=== PATIENT | female | born 1950 | race African-American/Black ===

== ENCOUNTER 2021-07-27 16:50 | Inpatient (IN) | payer MEDICARE ==
[~2021-07-27] VITALS: Ht 160 cm; Wt 57.6 kg
[2021-07-27] MEDS ORDERED: PIPERACILLIN/TAZ 3.375G PREMIX 50 ML IV ONE (17:15)
[2021-07-27] MEDS ORDERED: SODIUM CHLORIDE 0.9% 1000ML BAG (SEPSIS BOLUS) IV ONE (17:15)
[2021-07-27 17:34] LABS: HEMOGLOBIN. 8.7 g/dL (12.0-16.0); MEAN CORPUSCULAR HEMOGLOBIN 27.5 pg (28.0-32.0); MEAN CORPUSCULAR VOLUME 91.7 fL (81.0-99.0); MEAN PLATELET VOLUME 9.9 fl (7.4-10.4); PLATELET 457 x1000/uL (130-400); RED BLOOD CELL COUNT 3.17 mill/uL (4.2-5.4)
[2021-07-27 17:41] LABS: CHLORIDE 107 mEq/L (98-107)
[2021-07-27 18:19] LABS: BG BASE EXCESS -6.6 mmol/L (-2.0-2.0); BG CARBOXYHEMOGLOBIN 0.5 % (0.5-1.5); BG DEOXYHEMOGLOBIN 1.4 % (0.0-5.0); BG FRACTION INSPIRED OXYGEN 50; BG HCO3 ACT 17.3 mmol/L (22.0-26.0); BG METHEMOGLOBIN 0.1 % (0.0-1.5); BG OXYGEN SATURATION 98.6 % (92.0-98.5); BG PCO2 28.3 mmHg (35.0-45.0); BG PH 7.405 (7.350-7.450); BG PO2 147.8 mmHg (75.0-100.0); BG SAMPLE SITE RIGHT RADIAL; BG TOTAL HEMOGLOBIN 7.6 g/dL (12.0-18.0); BG VENT MODE VENT - AC
[2021-07-27] MEDS ORDERED: INSULIN REGULAR (HUMULIN R) 300UNITS/3ML VIAL IV NR (18:30)
[2021-07-27] MEDS ORDERED: ALBUTEROL (0.083%) 2.5MG/3ML NEB HHN NR (18:30)
[2021-07-27] MEDS ORDERED: DEXTROSE 50% WATER 50ML SYRINGE IV NR (18:30)
[2021-07-27] MEDS ORDERED: SODIUM BICARBONATE 8.4% 1 MEQ/ML 50ML SYR IV NR (18:30)
[2021-07-27] MEDS ORDERED: SODIUM CHLORIDE 0.9% 1,000 ML IV ONE (18:30)
[2021-07-27 18:48] LABS: PLATELET ESTIMATE INCREASED
[2021-07-27 21:34] LABS: CLARITY URINE TURBID (CLEAR); COLOR URINE ORANGE (YELLOW); KETONES URINE NEGATIVE (NEGATIVE); LEUKOCYTE ESTERASE URINE 3+ (NEGATIVE); NITRITE URINE NEGATIVE (NEGATIVE); OCCULT BLOOD URINE 3+ (NEGATIVE); PROTEIN URINE 2+ (NEGATIVE); SPECIFIC GRAVITY URINE 1.016 (1.005-1.030); UROBILINOGEN URINE 0.2 E.U./dL (0.2-1.0)
[2021-07-27 22:15] VITALS: BP 120/75
[2021-07-28] VITALS (12 sets, daily range): BP systolic 86–151; BP diastolic 52–96
[2021-07-28] MEDS: BLOOD SUGAR DIAGNOSTIC STRIP TEST SCH ×3 (03:00→11:17)
[2021-07-28] MEDS ORDERED: METOPROLOL TARTRATE 25MG TABLET PO NR (03:00)
[2021-07-28] MEDS ORDERED: DEXT 5% WATER + KCL 20MEQ/L 1,000 ML IV ONE (03:00)
[2021-07-28] MEDS ORDERED: LORAZEPAM 2MG/ML CPJ IV PRN ×2 (03:00→15:15)
[2021-07-28] MEDS ORDERED: DEXTROSE 50% WATER 50ML SYRINGE IV PRN (03:15)
[2021-07-28] MEDS ORDERED: DEXT 5%/0.45% NACL 1000ML 1,000 ML IV SCH (03:15)
[2021-07-28] MEDS ORDERED: ASPI-986 MT (03:44)
[2021-07-28] MEDS ORDERED: DILT30TA3 MT (03:47)
[2021-07-28] MEDS ORDERED: DOCU100T MT (03:48)
[2021-07-28] MEDS ORDERED: FAMO20TA8 PO (03:49)
[2021-07-28 03:50] LABS: BG BASE EXCESS -4.1 mmol/L (-2.0-2.0); BG CARBOXYHEMOGLOBIN 0.1 % (0.5-1.5); BG DEOXYHEMOGLOBIN 1.9 % (0.0-5.0); BG FRACTION INSPIRED OXYGEN 50; BG HCO3 ACT 20.9 mmol/L (22.0-26.0); BG METHEMOGLOBIN 0.2 % (0.0-1.5); BG OXYGEN SATURATION 98.1 % (92.0-98.5); BG OXYHEMOGLOBIN 97.8 % (94.0-97.0); BG PCO2 37.7 mmHg (35.0-45.0); BG PH 7.362 (7.350-7.450); BG PO2 121.2 mmHg (75.0-100.0); BG SAMPLE SITE RIGHT RADIAL; BG TOTAL HEMOGLOBIN 8.6 g/dL (12.0-18.0); BG VENT MODE VENT - AC
[2021-07-28] MEDS ORDERED: INSU100I13 SQ (03:50)
[2021-07-28] MEDS ORDERED: ISOS10TA2 MT (03:51)
[2021-07-28] MEDS ORDERED: METO5SOL19 PEG (03:54)
[2021-07-28] MEDS ORDERED: METO25TA6 PEG (03:54)
[2021-07-28] MEDS ORDERED: CHOL-36 PEG (04:03)
[2021-07-28] MEDS ORDERED: ASCO-339 PEG (04:03)
[2021-07-28] MEDS ORDERED: [UNRECOGNIZED DRUG - CODE] PEG (04:03)
[2021-07-28] MEDS ORDERED: MULT-230 PEG (04:03)
[2021-07-28] MEDS ORDERED: CLON0.1T PEG (04:03)
[2021-07-28] MEDS ORDERED: ZINC220C6 PEG (04:03)
[2021-07-28] MEDS: INSULIN LISPRO 100 UNITS/ML SUBCUT SCH ×2 (06:31→08:51)
[2021-07-28] MEDS: SODIUM CHLORIDE 0.45% 1,000 ML IV SCH (10:30)
[2021-07-28] MEDS: PIPERACILLIN/TAZOBACTAM 3.375 G in DEXTROSE 5% WATER 50 ML IV SCH ×2 (11:04→21:05)
[2021-07-28] MEDS ORDERED: ACETAMINOPHEN 650MG/20.3ML UDC GT PRN (12:00)
[2021-07-28 13:19] LABS: HEMATOCRIT. 24.7 % (36.0-48.0); HEMOGLOBIN. 7.7 g/dL (12.0-16.0); MEAN CORPUSCULAR HEMOGLOBIN 28.3 pg (28.0-32.0); MEAN CORPUSCULAR VOLUME 90.5 fL (81.0-99.0); MEAN PLATELET VOLUME 9.5 fl (7.4-10.4); PLATELET 275 x1000/uL (130-400); RED BLOOD CELL COUNT 2.73 mill/uL (4.2-5.4); RED CELL DISTRIBUTION WIDTH 17.8 % (11.6-14.6)
[2021-07-28] MEDS ORDERED: BLOOD SUGAR DIAGNOSTIC STRIP TEST SCH (15:00)
[2021-07-28] MEDS ORDERED: MORPHINE SULFATE 2 MG/ML CPJ (NOT FOR IM USE) IV PRN (15:15)
[2021-07-28] MEDS ORDERED: IPRATROPIUM/ALBUTEROL 0.5-3(2.5)MG/3ML NEB HHN SCH (18:00)
[2021-07-28] MEDS ORDERED: NALOXONE HCL 0.4MG/ML VIAL IV PRN (18:30)
[2021-07-28 19:51] LABS: PLATELET ESTIMATE NORMAL
[2021-07-29] VITALS (8 sets, daily range): BP systolic 112–132; BP diastolic 58–79
[2021-07-29] MEDS: SODIUM CHLORIDE 0.45% 1,000 ML IV SCH (02:29)
[2021-07-29] MEDS: PIPERACILLIN/TAZOBACTAM 3.375 G in DEXTROSE 5% WATER 50 ML IV SCH ×2 (10:47→21:00)
[2021-07-30] VITALS: BP 126/70
[2021-07-30 04:00] VITALS: BP 119/70
[2021-07-30 08:00] VITALS: BP 123/78
[2021-07-30] MEDS ORDERED: CEFTRIAXONE 1 G PREMIX 50 ML IV SCH (11:00)
[2021-07-30 12:00] VITALS: BP 116/73
[2021-07-30] MEDS ORDERED: CEFTRIAXONE 1,000 MG in DEXTROSE 5% WATER 50 ML IV SCH (13:00)
[2021-07-30 16:00] VITALS: BP 99/63
[2021-07-30 20:00] VITALS: BP 121/64
[2021-07-31] VITALS: BP 107/55
[2021-07-31 04:00] VITALS: BP 123/84
[2021-07-31 08:00] VITALS: BP 108/59
[2021-07-31 16:00] VITALS: BP 95/62
== END 2021-07-31 18:55 | DRG 871 ==
LOC: ER 16:50 → 5EST 19:46 → EDBEDREQ 20:45 → EDBEDREQTM 20:45 → ENRESERV 21:07 → 6EST 07-29 12:03
PROVIDERS: ADMIT Internal Medicine; ATTEND Internal Medicine
PROC: 5A1945Z Respiratory Ventilation, 24-96 Consecutive Hours (ICD-10-PCS; principal; 2021-07-27)
DX: A41.51 Sepsis due to Escherichia coli [E. coli] (principal); J96.20 Acute and chronic respiratory failure, unspecified whether with hypoxia or hypercapnia; E43 Unspecified severe protein-calorie malnutrition; N17.0 Acute kidney failure with tubular necrosis; N39.0 Urinary tract infection, site not specified; G93.49 Other encephalopathy; Z99.11 Dependence on respirator [ventilator] status; Z20.822 Contact with and (suspected) exposure to COVID-19; J44.9 Chronic obstructive pulmonary disease, unspecified; I11.0 Hypertensive heart disease with heart failure; I50.9 Heart failure, unspecified; D64.9 Anemia, unspecified; E87.5 Hyperkalemia; L89.150 Pressure ulcer of sacral region, unstageable; R65.20 Severe sepsis without septic shock; Z66 Do not resuscitate; E11.65 Type 2 diabetes mellitus with hyperglycemia; B96.4 Proteus (mirabilis) (morganii) as the cause of diseases classified elsewhere; Z68.22 Body mass index [BMI] 22.0-22.9, adult; Z88.8 Allergy status to other drugs, medicaments and biological substances; Z51.5 Encounter for palliative care; Z93.0 Tracheostomy status; Z79.899 Other long term (current) drug therapy
CPT/HCPCS: 36415; 36600; 71045; 76700; 80048; 80053; 81003; 82040; 82375; 82805; 82962; 83036; 83605; 84134; 84145; 85025; 87077; 87186; 87426; 93005; 94002; 94003; 99291; C9803; J0696; J1815; J2060; J2270; J2543; J3490; J7030; J7060